=== PATIENT | male | born 1995 ===

== ENCOUNTER 2023-06-30 21:50 | Inpatient (IN) | payer OTHER ==
[2023-06-30 22:45] VITALS: BMI 19.3
[2023-07-01] MEDS ORDERED: IBUPROFEN 600 MG TABLET (FP) PO PRN (00:37)
[2023-07-01] MEDS ORDERED: ACETAMINOPHEN 325 MG TABLET (FP) PO PRN (00:37)
[2023-07-01] MEDS ORDERED: BISMUTH SUBSALICYLATE 524 MG/30 ML PO PRN (00:37)
[2023-07-01] MEDS ORDERED: LOPERAMIDE HCL 2 MG CAPSULE PO PRN (00:37)
[2023-07-01] MEDS ORDERED: NALOXONE HCL (KLOXXADO) 8 MG SPRAY NS PRN (00:37)
[2023-07-01] MEDS ORDERED: POLYETHYLENE GLYCOL (HEALTHYLAX) 3350 17 GM PACKET PO PRN (00:37)
[2023-07-01] MEDS ORDERED: ONDANSETRON *ODT* 4 MG TABLET SL PRN (00:37)
[2023-07-01] MEDS ORDERED: guaiFENesin 600 MG TABLET.ER (FP) PO PRN (00:37)
[2023-07-01] MEDS ORDERED: NALOXONE HCL 0.4 MG/ML VIAL IM PRN (00:37)
[2023-07-01] MEDS ORDERED: BENZOCAINE/MENTHOL (CHLORASEPTIC ) LOZENGE MM PRN (00:37)
[2023-07-01] MEDS ORDERED: BENZONATATE 200 MG CAPSULE PO PRN (00:37)
[2023-07-01] MEDS ORDERED: DICYCLOMINE HCL 10 MG CAPSULE PO PRN (00:37)
[2023-07-01] MEDS ORDERED: IBUPROFEN 400 MG TABLET (FP) PO PRN (00:37)
[2023-07-01] MEDS ORDERED: MAG HYDROX/AL HYDROX/SIMETH 30 ML UNIT-DOSE CUP PO PRN (00:37)
[2023-07-01] MEDS ORDERED: MAGNESIUM HYDROX 2400MG/30ML ORAL SUSPENSION 30 ML CUP PO PRN (00:37)
[2023-07-01] MEDS: PRENATAL VITAMINS W/ FOLIC ACID TABLET (FP) PO SCH (10:25)
[2023-07-01] MEDS: hydrOXYzine PAMOATE 25 MG CAPSULE (FP) PO PRN (10:25)
[2023-07-01] MEDS: METHOCARBAMOL 500 MG TABLET PO PRN (10:25)
[2023-07-01] MEDS ORDERED: methaDONE HCL 10 MG TABLET (FOR DETOX USE ONLY) PO ONE (13:00)
[2023-07-01] MEDS: MELATONIN 5 MG TABLETS PO SCH (22:08)
[2023-07-01] MEDS: THIAMINE HCL 100 MG TABLET (FP) PO SCH (22:08)
[2023-07-02] MEDS: PRENATAL VITAMINS W/ FOLIC ACID TABLET (FP) PO SCH (09:39)
[2023-07-02] MEDS: METHOCARBAMOL 500 MG TABLET PO PRN ×2 (09:39→22:25)
[2023-07-02] MEDS: hydrOXYzine PAMOATE 25 MG CAPSULE (FP) PO PRN ×2 (09:39→22:25)
[2023-07-02 11:22] LABS: HEMATOCRIT 40.1 % (35.4-49); HEMOGLOBIN 13.4 GM/dL (11.7-16.9); MCH 27.3 pg (25.7-33.7); MCHC 33.3 g/dl (32.0-35.9); MEAN CELL VOLUME 81.9 fl (80-96); PLATELET COUNT 390 10^3/uL (134-434); RDW 14.8 % (11.9-15.9); WHITE BLOOD COUNT 5.1 K/mm3 (4.0-10.0)
[2023-07-02 12:41] LABS: POTASSIUM 4.3 mmol/L (3.5-5.1)
[2023-07-02 12:53] LABS: CALCIUM 9.5 mg/dL (8.5-10.1)
[2023-07-02 12:54] LABS: ALBUMIN 3.5 g/dl (3.4-5.0); BLOOD UREA NITROGEN 14.2 mg/dL (7-18)
[2023-07-02 12:57] LABS: CREATININE 0.7 mg/dL (0.55-1.3)
[2023-07-02 12:58] LABS: TOT PROT 7.8 g/dl (6.4-8.2)
[2023-07-02 12:59] LABS: BILIRUBIN,TOTAL 0.4 mg/dL (0.2-1)
[2023-07-02] MEDS: THIAMINE HCL 100 MG TABLET (FP) PO SCH (22:23)
[2023-07-02] MEDS: MELATONIN 5 MG TABLETS PO SCH (22:23)
[2023-07-02] MEDS: cloNIDine HCL 0.1 MG TABLET PO PRN (22:25)
[2023-07-03 09:25] VITALS: BP 133/89; PULSE 88; RESP 19; TEMP 97.6
[2023-07-03] MEDS: cloNIDine HCL 0.1 MG TABLET PO PRN (09:38)
[2023-07-03] MEDS: METHOCARBAMOL 500 MG TABLET PO PRN (09:38)
[2023-07-03] MEDS: PRENATAL VITAMINS W/ FOLIC ACID TABLET (FP) PO SCH (09:40)
[2023-07-03] MEDS ORDERED: methaDONE HCL 10 MG TABLET (FOR DETOX USE ONLY) PO ONE (10:00)
== END 2023-07-03 12:14 | disposition left against medical advice (07) | DRG 770 ==
LOC: YASAS 21:50 → UNDOADMIN 07-01 01:12 → Y6N 07-01 01:12
PROVIDERS: ADMIT Allergy & Immunology; ATTEND Surgery
PROC: HZ2ZZZZ Detoxification Services for Substance Abuse Treatment (ICD-10-PCS; principal; 2023-07-01)
DX: F11.23 Opioid dependence with withdrawal (principal); F14.20 Cocaine dependence, uncomplicated; F17.210 Nicotine dependence, cigarettes, uncomplicated; R74.01 Elevation of levels of liver transaminase levels; R73.9 Hyperglycemia, unspecified
CPT/HCPCS: 36415; 80053; 85027; 86780; 87635; 87811